=== PATIENT | male | born 1995 | race African-American/Black ===

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

== ENCOUNTER 2017-03-15 15:45 | Emergency (ER) | payer MEDICAID ==
[~2017-03-15] VITALS: Ht 175.3 cm; Wt 59.0 kg
[~2017-03-15 15:45] MED LIST changes: +PRILOSEC OTC20 MG ORAL
[2017-03-15] MEDS ORDERED: Metoclopramide 10mg/2ml Inj IVP ONE (16:00)
[2017-03-15] MEDS ORDERED: DiphenhydrAMINE 50mg/ml Inj IVP ONE (16:00)
[2017-03-15] MEDS ORDERED: Morphine Sulfate 2mg/ml Inj IVP ONE (16:00)
--- NOTE | 2017-03-15 16:07 | Emergency Room Report ---
History of Present Illness General Chief Complaint: Abdominal Pain Source: Patient Present Illness HPI Patient presents with severe epigastric pain and vomiting with diarrhea. He did not look at a car the diarrhea. This happened to him several times before. He thinks is related to something that he ate. He's had food poisoning the past. He denies ingestion of alcohol. He does smoke cannabis on occasion. Didn't take any medications today. The pain is severe, radiating towards his back. Constant burning aching 10/10. He denies any dysuria or rashes. Had similar presentation with neg CT on 12/25/16. Has had several visits for STD exposure and MS trauma. 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" Review of Systems All Other Systems: negative except mentioned in HPI Physical Exam Vital Signs Date Time Temp Pulse Resp B/P (MAP) Pulse Ox O2 Delivery O2 Flow Rate FiO2 03/15/17 15:41 97.5 63 20 156/79 100 Room Air Sp02 EP Interpretation: reviewed, normal General Appearance: well appearing, GCS 15, mild distress Head: normocephalic Eyes: bilateral eye PERRL, bilateral eye Scleral Injection ENT: moist mucus membranes Neck: supple Respiratory: lungs clear, normal breath sounds Cardiovascular #1: regular rate, rhythm Cardiovascular #2: 2+ radial (R) Gastrointestinal: normal inspection, normal bowel sounds, no mass, non- distended, no rebound, guarding, tenderness - epigastric, scaphoid Musculoskeletal: back normal, gait/station normal, normal range of motion Neurologic: alert, oriented x3, grossly normal Psychiatric: other - restless Skin: normal inspection, warm/dry Medical Decision Making Diagnostic Impression: Primary Impression: Gastritis Qualified Codes: K29.00 - Acute gastritis without bleeding Additional Impression: Substance abuse ER Course Patient presents with severe abdominal pain with vomiting and diarrhea. Differential includes gastritis, GERD, pancreatitis, gastroenteritis amongst others. His exam is against this being related to gallbladder problems. Evaluation will be with abdominal film, labs. The patient be treated IV hydration, Reglan, Benadryl and morphine with Pepcid. Labs significant for normal WBC and H/H. Lytes and lipase normal. + tox screen. Still with nausea. Given zofran. Harini PO. Sleeping calmly until awakened, then with increased movements and restlessness. Discussed need for avoiding illicit substances and need for GI evaluation. He was appreciative and requested more pain medicine. This was ordered. Patient stable for outpatient observation and treatment. (Apparently upset at discharge paperwork.) Laboratory Tests Test 03/15/17 15:50 03/15/17 18:36 White Blood Count 7.1 K/UL (4.8-10.8) Red Blood Count 4.53 M/UL (4.70-6.10) L Hemoglobin 14.6 G/DL (14.2-18.0) Hematocrit 44.0 % (42.0-52.0) Mean Corpuscular Volume 97 FL (80-99) Mean Corpuscular Hemoglobin 32.2 PG (27.0-31.0) H Mean Corpuscular Hemoglobin Concent 33.2 G/DL (32.0-36.0) Red Cell Distribution Width 10.9 % (11.6-14.8) L Platelet Count 297 K/UL (150-450) Mean Platelet Volume 5.6 FL (6.5-10.1) L Neutrophils (%) (Auto) 83.7 % (45.0-75.0) H Lymphocytes (%) (Auto) 11.5 % (20.0-45.0) L Monocytes (%) (Auto) 3.6 % (1.0-10.0) Eosinophils (%) (Auto) 0.1 % (0.0-3.0) Basophils (%) (Auto) 1.0 % (0.0-2.0) Prothrombin Time 11.8 SEC (9.30-11.50) H Prothrombin Time INR 1.1 (0.9-1.1) PTT 26 SEC (23-33) Sodium Level 136 MMOL/L (136-145) Potassium Level 3.5 MMOL/L (3.5-5.1) Chloride Level 102 MMOL/L (98-107) Carbon Dioxide Level 23 MMOL/L (21-32) Anion Gap 14 (5-15) Blood Urea Nitrogen 12 mg/dL (7-18) Creatinine 0.8 MG/DL (0.55-1.00) Estimate Glomerular Filtration Rate > 60 mL/min (>60) Glucose Level 128 MG/DL (74-106) H Calcium Level 9.9 MG/DL (8.5-10.1) Total Bilirubin 0.8 MG/DL (0.2-1.0) Aspartate Amino Transferase (AST) 25 U/L (15-37) Alanine Aminotransferase (ALT) 26 U/L (12-78) Alkaline Phosphatase 77 U/L (46-116) Total Protein 8.6 G/DL (6.4-8.2) H Albumin 4.6 G/DL (3.4-5.0) Globulin 4.0 g/dL Albumin/Globulin Ratio 1.1 (1.0-2.7) Lipase 99 U/L (73-393) Urine Color Pale yellow Urine Appearance Clear Urine pH 8 (4.5-8.0) Urine Specific [place] 1.010 (1.005-1.035) Urine Protein Negative (NEGATIVE) Urine Glucose (UA) 1+ (NEGATIVE) H Urine Ketones 2+ (NEGATIVE) H Urine Occult Blood 5+ (NEGATIVE) H Urine Nitrite Negative (NEGATIVE) Urine Bilirubin Negative (NEGATIVE) Urine Urobilinogen Normal MG/DL (0.0-1.0) Urine Leukocyte Esterase Negative (NEGATIVE) Urine RBC 30-40 /HPF (0 - 0) H Urine WBC 0-2 /HPF (0 - 0) Urine Squamous Epithelial Cells None /LPF (NONE/OCC) Urine Bacteria Occasional /HPF (NONE) Urine Opiates Screen Negative (NEGATIVE) Urine Barbiturates Screen Negative (NEGATIVE) Phencyclidine (PCP) Screen Negative (NEGATIVE) Urine Amphetamines Screen Positive (NEGATIVE) H Urine Benzodiazepines Screen Positive (NEGATIVE) H Urine Cocaine Screen Negative (NEGATIVE) Urine Marijuana (THC) Screen Positive (NEGATIVE) H Other X-Ray Diagnostic Results Other X-Ray Diagnostic Results : X-Ray ordered: abd # of Views/Limited Vs Complete: 2 View Indication: Pain EP Interpretation: Yes Interpretation: nonspecific bowel gas, no sbo, other - paucity of gas Impression: No acute disease Electronically Signed by: uRbén Fuller MD Last Vital Signs Date Time Temp Pulse Resp B/P (MAP) Pulse Ox O2 Delivery O2 Flow Rate FiO2 03/15/17 20:45 97.5 03/15/17 20:44 86 20 156/79 100 Room Air Status: improved Disposition: HOME, SELF-CARE Condition: Improved Scripts Acetaminophen (Tylenol) 325 Mg Tablet 650 MG ORAL Q6H Y for Prn Pain/Headache/Temp > 101, #20 TAB 0 Refills Prov: Rubén Fuller M.D. 03/15/17 Famotidine (PEPCID) 20 Mg Tablet 20 MG ORAL DAILY, #30 TAB 0 Refills Prov: Rubén Fuller M.D. 03/15/17 Ondansetron Odt* (ZOFRAN ODT*) 4 Mg Tab.rapdis 4 MG ORAL Q8H Y for Nausea & Vomiting, #6 TAB 0 Refills Prov: Rubén Fuller M.D. 03/15/17 Rubén Fuller M.D. Mar 15, 2017 16:07
[2017-03-15 16:14] LABS: EOSINOPHILS % (AUTO) 0.1 % (0.0-3.0); LYMPHOCYTES % (AUTO) 11.5 % (20.0-45.0); MEAN CORPUSCULAR HEMOGLOBIN 32.2 PG (27.0-31.0); MEAN CORPUSCULAR HGB CONC 33.2 G/DL (32.0-36.0); MEAN CORPUSCULAR VOLUME 97 FL (80-99); MEAN PLATELET VOLUME 5.6 FL (6.5-10.1); MONOCYTES % (AUTO) 3.6 % (1.0-10.0); NEUTROPHILS % (AUTO) 83.7 % (45.0-75.0); PLATELET COUNT 297 K/UL (150-450); RED BLOOD COUNT 4.53 M/UL (4.70-6.10); RED CELL DISTRIBUTION WIDTH 10.9 % (11.6-14.8); WHITE BLOOD COUNT 7.1 K/UL (4.8-10.8)
[2017-03-15 16:18] LABS: INR 1.1 (0.9-1.1); PROTHROMBIN TIME 11.8 SEC (9.30-11.50)
[2017-03-15 16:29] VITALS: BP 156/79
[2017-03-15 17:09] LABS: ALANINE AMINOTRANSFERASE 26 U/L (12-78); ALBUMIN/GLOBULIN RATIO 1.1 (1.0-2.7); ANION GAP 14 (5-15); ASPARTATE AMINO TRANSFERASE 25 U/L (15-37); CALCIUM 9.9 MG/DL (8.5-10.1); CARBON DIOXIDE 23 MMOL/L (21-32); CHLORIDE 102 MMOL/L (98-107); CREATININE 0.8 MG/DL (0.55-1.00); GLOMERULAR FILTRATION RATE > 60 mL/min (>60); LIPASE 99 U/L (73-393); POTASSIUM 3.5 MMOL/L (3.5-5.1); SODIUM 136 MMOL/L (136-145); TOTAL PROTEIN 8.6 G/DL (6.4-8.2)
[2017-03-15 19:02] LABS: APPEARANCE,URINE CLEAR; KETONES,URINE 2+ (NEGATIVE); LEUKOCYTE ESTERASE ,URINE NEGATIVE (NEGATIVE); NITRITE,URINE NEGATIVE (NEGATIVE); PH,URINE 8 (4.5-8.0); PROTEIN,URINE NEGATIVE (NEGATIVE); UROBILINOGEN,URINE NORMAL MG/DL (0.0-1.0)
[2017-03-15 19:09] LABS: RBC,URINE 30-40 /HPF (0 - 0); WBC,URINE 0-2 /HPF (0 - 0)
[2017-03-15 19:10] LABS: BACTERIA,URINE OCCASIONAL /HPF
[2017-03-15] MEDS ORDERED: TYLENOL325 MG ORAL (20:21)
[2017-03-15] MEDS ORDERED: PEPCID20 MG ORAL (20:21)
[2017-03-15] MEDS ORDERED: ZOFRAN ODT4 MG ORAL (20:21)
[2017-03-15] MEDS ORDERED: Lidocaine 2% Visc 15ml soln ORAL ONE (20:30)
[2017-03-15] MEDS ORDERED: Mylanta II UD 30ml ORAL ONE (20:30)
[2017-03-15 20:43] VITALS: BP 128/70
[2017-03-15 20:44] VITALS: BP 156/79
--- NOTE | 2017-03-16 12:27 | Diagnostic Imaging Report ---
Indication: Abdominal pain Comparison: None Single view of the abdomen obtained Findings: Bowel gas pattern is nonspecific. No mass, ectopic calcifications, or abnormal gas collections are identified. The bones are unremarkable. Impression: No acute findings
== END 2017-03-15 20:45 | disposition home or self-care (01) ==
LOC: EDBD 15:45 → EMR 16:06
DX: K29.70 Gastritis, unspecified, without bleeding (principal); F12.10 Cannabis abuse, uncomplicated
CPT/HCPCS: 36415; 74000; 80053; 80300; 81003; 83690; 85025; 85610; 85730; 96361; 96374; 96375; 99284; J1200; J2270; J2405; J2765; S0028

== ENCOUNTER 2018-03-09 05:07 | Emergency (ER) | payer MEDICAID ==
[~2018-03-09] VITALS: Ht 190.5 cm; Wt 81.6 kg
[~2018-03-09 05:07] MED LIST changes: +PEPCID20 MG ORAL; +TYLENOL325 MG ORAL
[2018-03-09 05:45] VITALS: BP 100/67
[2018-03-09] MEDS ORDERED: Tetanus/Diptheria/Pertussis Vaccine 0.5ml Syr IM ONE (06:00)
[2018-03-09 06:31] VITALS: BP 100/67
[2018-03-09] MEDS ORDERED: IBUPROFEN600 MG ORAL (06:31)
[2018-03-09] MEDS ORDERED: CEPHALEXIN500 MG ORAL (06:31)
--- NOTE | 2018-03-09 06:32 | Emergency Room Report ---
History of Present Illness General Chief Complaint: Laceration Source: Patient Present Illness HPI Is a 23-year-old male who is right-hand dominant. He presents with chief complaint of laceration to his left index finger. He was playing with his pocket knife and it for it upon itself. And he sustained a laceration to his left index finger. Pain is 7 out of 10 throbbing in nature. No fever chills but no nausea no vomiting. Tetanus not up-to-date. No other complaint. No other injury. 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" Review of Systems Eye: Denies: eye pain, blurred vision ENT: Denies: ear pain, nose congestion, throat swelling Respiratory: Denies: cough, shortness of breath Cardiovascular: Denies: chest pain, palpitations Gastrointestinal: Denies: abdominal pain, diarrhea, nausea, vomiting Musculoskeletal: Denies: back pain, joint pain Skin: Denies: rash Neurological: Denies: headache, numbness Endocrine: Denies: increased thirst, increased urine Hematologic/Lymphatic: Denies: easy bruising All Other Systems: negative except mentioned in HPI Physical Exam Vital Signs Date Time Temp Pulse Resp B/P (MAP) Pulse Ox O2 Delivery O2 Flow Rate FiO2 03/09/18 05:30 98.4 91 18 100/67 95 Room Air 98.4 vitals normal Sp02 EP Interpretation: reviewed, normal General Appearance: well appearing, no apparent distress, alert Head: normocephalic, atraumatic Eyes: bilateral eye PERRL, bilateral eye EOMI ENT: hearing grossly normal, normal pharynx Neck: full range of motion, supple, no meningismus Respiratory: chest non-tender, lungs clear, normal breath sounds Cardiovascular #1: regular rate, rhythm, no murmur Gastrointestinal: normal bowel sounds, non tender, no mass, no organomegaly, no bruit, non-distended Musculoskeletal: back normal, gait/station normal, normal range of motion, other - Left index finger: On the radial aspect of the finger, there is a 3 cm skin avulsion. Oozing of blood. Full range of motion of MCP, PIP, DIP joint. Sensation normal. Capillary refill less than 2 seconds. Neurologic: alert, oriented x3 Psychiatric: mood/affect normal Skin: warm/dry Procedures Laceration/Wound Repair Laceration/Wound Repair : Consent: Verbal Wound Location: upper extremity Wound's Depth, Shape: linear, other - skin avulsion Wound Length (cm): 3 Wound Explored: clean Irrigated w/ Saline (ccs): 1000 Betadine Prep?: Yes Anesthesia: 1% Lidocaine Volume Anesthetic (ccs): 2 Wound Repaired With: sutures Suture Size/Type: 4:0, proline Number of Sutures: 5 Sterile Dressing Applied?: Yes Patient Tolerated: Well Complications: None Progress I undermined the skin and was able to pull the edges close together. Patient tolerated procedure without a problem. 5 sutures placed. Medical Decision Making Diagnostic Impression: Primary Impression: Laceration of finger of left hand Qualified Codes: S61.211A - Laceration without foreign body of left index finger without damage to nail, initial encounter ER Course Patient with a finger laceration. No tendon laceration or foreign body. Last Vital Signs Date Time Temp Pulse Resp B/P (MAP) Pulse Ox O2 Delivery O2 Flow Rate FiO2 03/09/18 05:45 98.4 91 18 100/67 95 Room Air 98.4 Status: improved Disposition: HOME, SELF-CARE Condition: Stable Scripts Ibuprofen* (MOTRIN*) 600 Mg Tablet 600 MG ORAL THREE TIMES A DAY, #30 TAB 0 Refills Prov: Guy Savage MD 03/09/18 Cephalexin* (KEFLEX*) 500 Mg Capsule 500 MG ORAL TID, #21 CAP Prov: Guy Savage MD 03/09/18 Referrals: [facility]ERR[facility] (PCP) Patient Instructions: Laceration Care, Adult Additional Instructions: Keep wound clean. Follow-up in 7-10 day for suture removal. Return if worse. Guy Savage MD Mar 09, 2018 06:32
== END 2018-03-09 06:36 | disposition home or self-care (01) ==
LOC: EMR 06:18
DX: S61.211A Laceration without foreign body of left index finger without damage to nail, initial encounter (principal); Z23 Encounter for immunization; W26.0XXA Contact with knife, initial encounter; Y93.89 Activity, other specified; Y92.9 Unspecified place or not applicable; Y99.9 Unspecified external cause status
CPT/HCPCS: 12002; 90471; 90715; 99283; Z7502

== ENCOUNTER 2018-03-20 15:55 | Emergency (ER) | payer MEDICAID ==
[~2018-03-20] VITALS: Ht 190.5 cm; Wt 83.9 kg
[2018-03-20 16:21] VITALS: BP 160/99
[2018-03-20 16:37] VITALS: BP 160/99
--- NOTE | 2018-03-20 16:40 | Emergency Room Report ---
History of Present Illness General Chief Complaint: Wound Recheck/Suture Removal Source: Patient, Medical Record Present Illness HPI Patient presents with request of suture evaluation and possible removal Patient had initial injury early March left index finger Denies any discharge feels the area has been healing well Denies any fevers or chills denies any pain denies any redness Allergies: Coded Allergies: No Known Allergies (Unverified , 08/28/14) Patient History Past Medical History: see triage record Pertinent Family History: none Reviewed Nursing Documentation: PMH: Agreed; PSxH: Agreed Nursing Documentation-PMH Hx Cardiac Problems: Yes - "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" Review of Systems All Other Systems: negative except mentioned in HPI Physical Exam Vital Signs Date Time Temp Pulse Resp B/P (MAP) Pulse Ox O2 Delivery O2 Flow Rate FiO2 03/20/18 16:19 97.9 78 20 167/99 98 Room Air 97.9 Sp02 EP Interpretation: reviewed, normal General Appearance: well appearing, no apparent distress Head: normocephalic, atraumatic Eyes: bilateral eye PERRL, bilateral eye EOMI ENT: hearing grossly normal Musculoskeletal: other - [address] left medial index finger, no obvious dehiscence no fluctuance appears to be healing well Neurologic: alert, oriented x3 Skin: other - As above Lymphatic: no adenopathy Procedures Additional Procedure Procedure Narrative Suture removal Area was cleansed and prepped 5 sutures were removed Without any signs of dehiscence in the appropriate fashion using a suture removal kit patient tolerated the procedure well Medical Decision Making Diagnostic Impression: Primary Impression: suture removal ER Course Patient has sutures removed as noted above Is otherwise stable for close outpatient follow-up Last Vital Signs Date Time Temp Pulse Resp B/P (MAP) Pulse Ox O2 Delivery O2 Flow Rate FiO2 03/20/18 16:21 97.9 78 20 160/99 98 Room Air 97.9 Status: improved Disposition: HOME, SELF-CARE Condition: Improved Patient Instructions: Suture Removal, Care After Additional Instructions: Patient is provided with the discharge instructions notified to follow up with primary doctor in the next 2-3 days otherwise return to the er with any worsening symptoms. Please note that this report is being documented using DRAGON technology. This can lead to erroneous entry secondary to incorrect interpretation by the dictating instrument. Bc Wagner DO Mar 20, 2018 16:40
== END 2018-03-20 16:37 | disposition home or self-care (01) ==
LOC: EMR 16:33
DX: Z48.02 Encounter for removal of sutures (principal)
CPT/HCPCS: 99282

== ENCOUNTER 2019-05-16 12:38 | Emergency (ER) | payer MEDICAID ==
[~2019-05-16] VITALS: Ht 188 cm; Wt 90.7 kg
[2019-05-16] MEDS ORDERED: DiphenhydrAMINE 50mg/ml Inj IVP ONE (13:00)
[2019-05-16] MEDS ORDERED: Morphine Sulfate 4mg/ml Inj (IV USE ONLY) IVP ONE ×2 (13:00→15:45)
[2019-05-16] MEDS ORDERED: Metoclopramide 10mg/2ml Inj IVP ONE (13:00)
[2019-05-16 13:07] LABS: BASOPHILS % (AUTO) 0.6 % (0.0-2.0); EOSINOPHILS % (AUTO) 0.1 % (0.0-3.0); HEMATOCRIT 45.7 % (42.0-52.0); HEMOGLOBIN 15.5 G/DL (14.2-18.0); LYMPHOCYTES % (AUTO) 11.5 % (20.0-45.0); MEAN CORPUSCULAR VOLUME 94 FL (80-99); MONOCYTES % (AUTO) 3.8 % (1.0-10.0); PLATELET COUNT 399 K/UL (150-450); RED BLOOD COUNT 4.86 M/UL (4.70-6.10); RED CELL DISTRIBUTION WIDTH 11.2 % (11.6-14.8); WHITE BLOOD COUNT 11.8 K/UL (4.8-10.8)
[2019-05-16 13:13] LABS: INR 1.1 (0.9-1.1)
[2019-05-16 13:18] LABS: ANION GAP 12 mmol/L (5-15); BLOOD UREA NITROGEN 12 mg/dL (7-18); CALCIUM 9.6 MG/DL (8.5-10.1); CARBON DIOXIDE 27 MMOL/L (21-32); CHLORIDE 101 MMOL/L (98-107); CREATININE 0.9 MG/DL (0.55-1.30); POTASSIUM 3.5 MMOL/L (3.5-5.1); SODIUM 140 MMOL/L (136-145)
[2019-05-16 13:23] LABS: ALANINE AMINOTRANSFERASE 28 U/L (12-78); ALBUMIN 4.4 G/DL (3.4-5.0); ALBUMIN/GLOBULIN RATIO 1.2 (1.0-2.7); ALKALINE PHOSPHATASE 71 U/L (46-116); ASPARTATE AMINO TRANSFERASE 28 U/L (15-37); BILIRUBIN,TOTAL 0.9 MG/DL (0.2-1.0); CREATINE KINASE 298 U/L (26-308)
[2019-05-16 14:46] VITALS: BP 150/94
--- NOTE | 2019-05-16 15:07 | Emergency Room Report ---
History of Present Illness General Chief Complaint: Abdominal Pain Source: Patient, EMS Present Illness HPI Patient is brought in by EMS for epigastric pain and vomiting. He has been seen in the past year for gastritis. He does not know what demurred pancreatitis means. The pain is severe and he is on able to stop retching. Denies alcohol use. Denies coffee grounds or melena. Pain epigastric, constant. Unable to stop vomiting. No fevers, chills, sore throat, chest pain, palpitations, dysuria, shortness of breath, joint pain, rashes, depression, anxiety, visual changes, dizziness, headache. Seen March 2017 with dx Gastritis. Med decision making: Patient presents with severe abdominal pain with vomiting and diarrhea. Differential includes gastritis, GERD, pancreatitis, gastroenteritis amongst others. His exam is against this being related to gallbladder problems. Evaluation will be with abdominal film, labs. The patient be treated IV hydration, Reglan, Benadryl and morphine with Pepcid. Labs significant for normal WBC and H/H. Lytes and lipase normal. + tox screen. Still with nausea. Given zofran. Harini PO. Sleeping calmly until awakened, then with increased movements and restlessness. Discussed need for avoiding illicit substances and need for GI evaluation. He was appreciative and requested more pain medicine. This was ordered. Patient stable for outpatient observation and treatment. 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" History Of Psychiatric Problem: Yes Review of Systems All Other Systems: negative except mentioned in HPI Physical Exam Vital Signs Date Time Temp Pulse Resp B/P (MAP) Pulse Ox O2 Delivery O2 Flow Rate FiO2 05/16/19 12:33 98.1 72 20 150/94 (112) 99 Room Air Sp02 EP Interpretation: reviewed, normal General Appearance: alert, GCS 15, mild distress Head: normocephalic Eyes: bilateral eye PERRL, bilateral eye EOMI, bilateral eye Scleral Injection ENT: moist mucus membranes Neck: supple Respiratory: lungs clear, normal breath sounds Cardiovascular #1: regular rate, rhythm Cardiovascular #2: 2+ radial (R) Gastrointestinal: normal inspection, no mass, non-distended, no guarding, no rebound, tenderness - Epigastric, decreased bowel sounds, scaphoid Musculoskeletal: back normal, normal range of motion, gait/station normal Neurologic: alert, oriented x3, grossly normal Psychiatric: anxious - And in pain Skin: no rash, warm/dry Medical Decision Making Diagnostic Impression: Primary Impression: Pancreatitis Qualified Codes: K85.90 - Acute pancreatitis without necrosis or infection, unspecified Additional Impressions: Persistent vomiting Substance abuse ER Course Patient presents with epigastric pain vomiting that is severe. Differential includes THC hyperemesis syndrome, gastritis, pancreatitis, esophagitis, viral syndrome amongst others. Evaluation with EKG and labs. Abdomen is nonsurgical at this time but the patient is in quite a bit of distress. Based on the monitoring and evaluation advisor given IV hydration, Pepcid, morphine Reglan and Benadryl. Labs significant for elevated lipase. In the past lipase is always been normal here. In addition normal white count and CMP is normal. Talk screen is positive for cocaine THC. Patient still with vomiting and nausea with pain. Discussed with Dr. Woodard who accepts the patient for observation. Laboratory Tests Test 05/16/19 12:54 05/16/19 15:00 White Blood Count 11.8 K/UL (4.8-10.8) H Red Blood Count 4.86 M/UL (4.70-6.10) Hemoglobin 15.5 G/DL (14.2-18.0) Hematocrit 45.7 % (42.0-52.0) Mean Corpuscular Volume 94 FL (80-99) Mean Corpuscular Hemoglobin 31.8 PG (27.0-31.0) H Mean Corpuscular Hemoglobin Concent 33.8 G/DL (32.0-36.0) Red Cell Distribution Width 11.2 % (11.6-14.8) L Platelet Count 399 K/UL (150-450) Mean Platelet Volume 5.6 FL (6.5-10.1) L Neutrophils (%) (Auto) 84.0 % (45.0-75.0) H Lymphocytes (%) (Auto) 11.5 % (20.0-45.0) L Monocytes (%) (Auto) 3.8 % (1.0-10.0) Eosinophils (%) (Auto) 0.1 % (0.0-3.0) Basophils (%) (Auto) 0.6 % (0.0-2.0) Prothrombin Time 11.4 SEC (9.30-11.50) Prothrombin Time INR 1.1 (0.9-1.1) PTT 27 SEC (23-33) Sodium Level 140 MMOL/L (136-145) Potassium Level 3.5 MMOL/L (3.5-5.1) Chloride Level 101 MMOL/L (98-107) Carbon Dioxide Level 27 MMOL/L (21-32) Anion Gap 12 mmol/L (5-15) Blood Urea Nitrogen 12 mg/dL (7-18) Creatinine 0.9 MG/DL (0.55-1.30) Estimate Glomerular Filtration Rate > 60 mL/min (>60) Glucose Level 127 MG/DL (74-106) H Calcium Level 9.6 MG/DL (8.5-10.1) Total Bilirubin 0.9 MG/DL (0.2-1.0) Aspartate Amino Transferase (AST) 28 U/L (15-37) Alanine Aminotransferase (ALT) 28 U/L (12-78) Alkaline Phosphatase 71 U/L (46-116) Total Creatine Kinase 298 U/L (26-308) Troponin I 0.000 ng/mL (0.000-0.056) Total Protein 8.2 G/DL (6.4-8.2) Albumin 4.4 G/DL (3.4-5.0) Globulin 3.8 g/dL Albumin/Globulin Ratio 1.2 (1.0-2.7) Lipase 452 U/L (73-393) H Serum Alcohol < 3 mg/dL Urine Color Pale yellow Urine Appearance Clear Urine pH 9 (4.5-8.0) Urine Specific [place] 1.015 (1.005-1.035) Urine Protein Negative (NEGATIVE) Urine Glucose (UA) Negative (NEGATIVE) Urine Ketones 2+ (NEGATIVE) H Urine Blood 2+ (NEGATIVE) H Urine Nitrite Negative (NEGATIVE) Urine Bilirubin Negative (NEGATIVE) Urine Urobilinogen Normal MG/DL (0.0-1.0) Urine Leukocyte Esterase Negative (NEGATIVE) Urine RBC 10-15 /HPF (0 - 0) H Urine WBC 0-2 /HPF (0 - 0) Urine Squamous Epithelial Cells None /LPF (NONE/OCC) Urine Bacteria Occasional /HPF (NONE) Urine Opiates Screen Positive (NEGATIVE) H Urine Barbiturates Screen Negative (NEGATIVE) Phencyclidine (PCP) Screen Negative (NEGATIVE) Urine Amphetamines Screen Negative (NEGATIVE) Urine Benzodiazepines Screen Negative (NEGATIVE) Urine Cocaine Screen Positive (NEGATIVE) H Urine Marijuana (THC) Screen Positive (NEGATIVE) H EKG Diagnostic Results Rate: normal Rhythm: NSR ST Segments: no acute changes Rhythm Strip Diag. Results EP Interpretation: yes Rhythm: NSR, no PVC's, no ectopy Last Vital Signs Date Time Temp Pulse Resp B/P (MAP) Pulse Ox O2 Delivery O2 Flow Rate FiO2 05/16/19 21:00 98.2 70 14 128/85 100 Room Air Status: improved Disposition: PLACE IN OBSERVATION Condition: Serious Referrals: [facility] (PCP) Rubén Fuller MD May 16, 2019 15:07
[2019-05-16 15:35] LABS: APPEARANCE,URINE CLEAR; BILIRUBIN, URINE NEGATIVE (NEGATIVE); COLOR,URINE PALE YELLOW; GLUCOSE, URINE (UA) NEGATIVE (NEGATIVE); KETONES,URINE 2+ (NEGATIVE); LEUKOCYTE ESTERASE ,URINE NEGATIVE (NEGATIVE); NITRITE,URINE NEGATIVE (NEGATIVE); PH,URINE 9 (4.5-8.0); PROTEIN,URINE NEGATIVE (NEGATIVE); UROBILINOGEN,URINE NORMAL MG/DL (0.0-1.0)
[2019-05-16 15:50] VITALS: BP 137/88
[2019-05-16 16:15] VITALS: BP 136/82
[2019-05-16 21:00] VITALS: BP 128/85
--- NOTE | 2019-05-20 15:46 | Cardiology Report ---
APPROVED REPORT EKG Measurement Heart [id number] Sinus rhythm with marked sinus arrhythmia Otherwise normal ECG
== END 2019-05-16 21:00 | disposition short-term general hospital (02) ==
LOC: EDBD 12:38 → EMR 14:56 → EDBEDREQ 16:02 → EMR 21:00
DX: K85.90 Acute pancreatitis without necrosis or infection, unspecified (principal); R11.10 Vomiting, unspecified; F19.10 Other psychoactive substance abuse, uncomplicated; Z87.891 Personal history of nicotine dependence
CPT/HCPCS: 36415; 80053; 80307; 81003; 82550; 83690; 84484; 85025; 85610; 85730; 93005; 96361; 96374; 96375; 96376; G0480; J1200; J2270; J2405; J2765; J7030; S0028; Z7502; 99284